=== PATIENT | female | born 1955 | race Caucasian/White ===

== ENCOUNTER 2018-09-21 08:49 | Day surgery (SDC) | payer MEDICAID ==
[2018-09-21] MEDS ORDERED: Lactated Ringer's 500 ML IV ONE (09:36)
[2018-09-21] MEDS ORDERED: Propofol 10 mg/ml Inj (20 ML) ONE (11:11)
[2018-09-21 11:45] VITALS: PULSE 63
[2018-09-21 12:06] VITALS: BP 106/56; RESP 19; TEMP 94.3; O2SAT 100
== END 2018-09-21 12:18 | disposition home or self-care (01) ==
LOC: H.ENDO 08:49
PROVIDERS: ATTEND Internal Medicine Gastroenterology
DX: K30 Functional dyspepsia (principal); E11.9 Type 2 diabetes mellitus without complications; I10 Essential (primary) hypertension; E03.9 Hypothyroidism, unspecified; K52.9 Noninfective gastroenteritis and colitis, unspecified; K64.8 Other hemorrhoids; K29.50 Unspecified chronic gastritis without bleeding
CPT/HCPCS: 43239; 45380; 88305; J2001; J2704; J7120